=== PATIENT | male | born 1990 | race Hispanic/Latino ===

== ENCOUNTER 2021-07-11 22:41 | Emergency (ER) | payer OTHER ==
[2021-07-11] MEDS ORDERED: Lidocaine Viscous Sol 2% 15 ml UD Cup ONE (23:16)
[2021-07-11] MEDS ORDERED: Mag-Al Plus 1200 MG/1200 MG/120 MG/30 ML UDCUP ONE (23:16)
[2021-07-11] MEDS ORDERED: Ondansetron ODT 4 MG TAB ONE (23:36)
== END 2021-07-12 00:04 ==
LOC: NAV ERS 22:41
DX: K21.00 Gastro-esophageal reflux disease with esophagitis, without bleeding (principal); Z87.891 Personal history of nicotine dependence
CPT/HCPCS: 99284; Q0162